=== PATIENT | female | born 1995 | race Caucasian/White ===

== ENCOUNTER 2025-06-07 21:48 | Emergency (ER) | payer SELFPAY ==
[2025-06-07] MEDS: Take Home: traMADol 50 MG, 4 Tab Pack PO ONE (22:23)
[2025-06-07 22:28] VITALS: BP 141/70; PULSE 75
== END 2025-06-07 22:25 | disposition home or self-care (01) ==
LOC: DL.ED 21:48
DX: K02.9 Dental caries, unspecified (principal); Z90.49 Acquired absence of other specified parts of digestive tract
CPT/HCPCS: 99282; A9270-GY